=== PATIENT | male | born 1985 | race Caucasian/White ===

== ENCOUNTER 2022-12-19 17:47 | Emergency (ER) | payer BC, OTHER ==
[~2022-12-19] VITALS: Ht 180.3 cm; Wt 120.3 kg
[2022-12-19 17:50] VITALS: O2SAT 100
[2022-12-19 18:42] LABS: BASOPHILS % 0.9 % (0.0-2.0); EOSINOPHILS % 0.5 % (0.0-5.0); HEMATOCRIT. 41.6 % (42.0-52.0); HEMOGLOBIN. 13.9 g/dL (14.0-18.0); LYMPHOCYTES % 32.3 % (20.0-50.0); MEAN CORPUSCULAR HEMOGLOBIN 28.3 pg (28.0-32.0); MEAN CORPUSCULAR VOLUME 84.9 fL (80.0-94.0); MEAN PLATELET VOLUME 8.7 fl (7.4-10.4); MONOCYTES % 9.3 % (2.0-8.0); PLATELET 325 x1000/uL (130-400); RED CELL DISTRIBUTION WIDTH 14.8 % (11.6-14.6)
[2022-12-19 18:51] LABS: CHLORIDE 107 mEq/L (98-107)
[2022-12-19 18:52] LABS: INR 0.9
[2022-12-19 20:32] VITALS: BP 153/104; PULSE 98; RESP 14; TEMP 98.6
== END 2022-12-19 20:33 | disposition home or self-care (01) ==
LOC: ER 17:47
DX: R07.89 Other chest pain (principal); R20.2 Paresthesia of skin; Z98.890 Other specified postprocedural states
CPT/HCPCS: 80053; 82962; 83880; 83690; 85025; 85610; 84484; 36415; 71045; 93005; 99285; Z7610 ×2